=== PATIENT | female | born 1955 | race Caucasian/White ===

== ENCOUNTER → 2016-10-11 | Day surgery (SDC) | payer BC ==
[~2016-10-11] MED LIST: ADVIL200 M2 PO; AMBIEN CR PO; AMBIEN12.5 MG PO; AMITIZA24 MCG PO; CALCIUM 500 +1 EAC2; DARVOCET-N 1001 TAB PO; GABAPENTIN300 M2 PO; LIDOCARE1 EACH; LORAZEPAM1 MG PO; MULTIVITAMIN1 UDCAP; PHENERGAN25 M1 PO; RANITIDINE HCL300 MG PO; ROBAXIN PO; ZOLOFT
--- NOTE | ~2016-10-11 | OR ---
Unit #: [id number] #: [id number] Patient: BRYSON PEREA [id number] [address] [place], [place] [address] [id number] MR#: [id number] NAME: BRYSON PEREA ROOM: Date of Procedure: 10/11/2016 Admission Date: 10/11/2016 Surgeon: Lyndon Hodges M.D. : 1955 Attending Physician: Lyndon Hodges M.D. Referring Physician: Lyndon Hodges M.D. Primary Care Physician: Lexa Patricio M.D. OPERATIVE REPORT PREOPERATIVE DIAGNOSES Back pain, radiculopathy, postlumbar fusion, herniated nucleus pulposus. POSTOPERATIVE DIAGNOSES Back pain, radiculopathy, postlumbar fusion, radiculopathy, herniated nucleus pulposus. PROCEDURE PERFORMED Lumbar epidural steroid injection with intravenous sedation and fluoroscopic guidance for needle localization. INDICATIONS FOR PROCEDURE The patient is 60-year-old female with previously mentioned diagnosis. She has a new worsening pain in her back down her left leg. Workup demonstrated a small disk herniation and annular tear and contacting the left S1 nerve root. This consistent with her symptom complex. She is not settle with conservative measures. Prior to that, she was managed fairly well for her fusion with combination of medication therapy and rehab. DESCRIPTION OF PROCEDURE The patient was placed in a seated position. Standard monitors were applied. 2 mg of Versed were given for sedation and anxiolysis, which were adequate. Vital signs remained stable. Sterile prep and drape then of lumbar area was performed. The skin at the L5-S1 level was localized with 1% lidocaine. An 18-gauge Fast Orientationtead needle was then advanced via loss of resistance technique and fluoroscopic guidance in toward the epidural space. The patient did not complain of pain or paresthesia. After confirming proper positioning with fluoroscopy and radiographic contrast, 80 mg of Depo-Medrol and 4 mL of 0.125% bupivacaine were deposited. The patient tolerated the procedure otherwise well and was discharged to the recovery room in stable condition. Dictated by... Davey Ordonez/genna TD: 10/11/2016 23:14 JOB #: [id number] Unit #: [id number] #: [id number] Patient: BRYSON PEREA OPERATIVE REPORT Page 1 of 1 X Lyndon Hodges MD X PROCEDURE OPERATIVE NOTE
== END | disposition home or self-care (01) ==
LOC: CCSC 07:15
DX: M51.16 Intervertebral disc disorders with radiculopathy, lumbar region (principal); Z98.1 Arthrodesis status
CPT/HCPCS: J1040; J2250